=== PATIENT | female | born 1985 | race Caucasian/White ===

== ENCOUNTER 2016-06-04 22:17 | Emergency (ER) | payer SELFPAY ==
[2016-06-04 22:25] VITALS: RESP 16; O2SAT 96
--- NOTE | 2016-06-04 22:34 | CPEKG ---
Heart Rate: 71 RR Interval: 845 P-R Interval: 128 QRSD Interval: 92 QT Interval: 372 QTC Interval: 405 P Stacy: 32 QRS Stacy: 67 T Wave Stacy: -5 EKG Severity - NORMAL ECG - EKG Impression: SINUS RHYTHM Electronically Signed By: Ras Elmore 06-Jun-2016 13:17:52
[2016-06-04] MEDS ORDERED: NS 1,000 ML IV ONE (22:59)
[2016-06-04 23:06] LABS: % IMMATURE GRANULYOCYTES 0.1 % (0.0-1.1); ABSOLUTE IMMATURE GRANULOCYTES 0.01 10^3/uL (0.00-0.10); ADD DIFF? NO; ADD MORPH? NO; ADD SCAN? NO; ATYPICAL LYMPHOCYTE FLAG 30 (0-99); FRAGMENT RBC FLAG 0 (0-99); HEMOGLOBIN 14.1 g/dL (12.6-16.3); LEFT SHIFT FLG 0 (0-99); LIPEMIA HEMOLYSIS FLAG 90 (0-99); MEAN CELL HEMOGLOBIN 31.1 pg (27.9-34.1); MEAN CELL HEMOGLOBIN CONCENTR. 34.4 g/dL (32.4-36.7); MEAN CELL VOLUME 90.5 fL (81.5-99.8); MEAN PLATELET VOLUME 10.2 fL (8.7-11.7); PLATELET CLUMPS FLAG 10 (0-99); PLATELET COUNT 241 10^3/uL (150-400); RED BLOOD CELL COUNT 4.53 10^6/uL (4.18-5.33)
[2016-06-04 23:24] LABS: ANION GAP 12 mEq/L (8-16); CALCIUM 9.4 mg/dL (8.5-10.4); CARBON DIOXIDE 24 mEq/l (22-31); CHLORIDE 103 mEq/L (97-110); CREATININE 0.7 mg/dL (0.6-1.0); GLOMERULAR FILTRATION RATE > 60; GLUCOSE 87 mg/dL (70-100); POTASSIUM 3.9 mEq/L (3.5-5.2); SODIUM 139 mEq/L (134-144)
--- NOTE | 2016-06-05 00:43 | EDPHY ---
H & P Stated Complaint: dizziness, intermitant loss of vision - Personal History LMP (Females 10-55): 22-28 Days Ago Current Tetanus/Diphtheria Vaccine: Yes Current Tetanus Diphtheria and Acellular Pertussis (TDAP): Yes - Medical/Surgical History Hx Asthma: No Hx Chronic Respiratory Disease: No Hx Diabetes: No Hx Cardiac Disease: No Hx Renal Disease: No Hx Cirrhosis: No Hx Alcoholism: No Hx HIV/AIDS: No Hx Splenectomy or Spleen Trauma: No Other PMH: tonsilectomy, - Social History Smoking Status: Never smoked HPI/ROS: Chief complaint: Dizziness History of present illness: This is a 31-year-old female who presents to the emergency department for evaluation of dizziness. Patient reports the onset of symptoms approximately 5 days ago. She states symptoms are intermittent in nature. She describes the dizziness as a lightheadedness. Worse when she stands up. When she does she occasionally feels like she is going to pass out. She also gets black spots in her vision when she stands up and gets dizzy. She has had a mild headache although she has had similar in the past. She denies other potential precipitating factors. She denies alleviating factors. She denies other associated signs or symptoms including no paresthesias, no weakness or paralysis, no bowel or bladder dysfunction, no fevers or cold-like symptoms, no trauma. Review of systems: A 10 point review of systems was obtained and other than described above was negative (Galileo Ornelas) - Physical Exam Exam: General Appearance: Alert, nontoxic. Eyes: Pupils equal and round no pallor or injection. ENT: Tympanic membranes, external auditory canals, external ears and surrounding soft tissue including over the mastoids are unremarkable. Nasopharynx is not injected. There is no rhinorrhea. Oropharynx is not injected. There is no edema. There is no exudate. There is no asymmetry. The uvula is midline. No elevation of the tongue. There is no hoarseness, no drooling, no trismus, no stridor. Respiratory: There are no retractions, lungs are clear to auscultation. Cardiovascular: Regular rate and rhythm. Gastrointestinal: Abdomen is soft and nontender, no masses, bowel sounds normal. Neurological: Alert and oriented x4. Cranial nerves 2-12 grossly intact. Strength and sensation intact and symmetrical. No pronator drift. No meningismus. Ambulating without difficulty. Skin: Warm and dry, no rashes. Musculoskeletal: Neck is supple nontender. Extremities are symmetrical, full range of motion. Psychiatric: Patient is oriented X 3, there is no agitation. (Galileo Ornelas) Constitutional: Initial Vital Signs Temperature (C) 36.7 C 06/04/16 22:22 Heart Rate 85 06/04/16 22:22 Respiratory Rate 16 06/04/16 22:22 Blood Pressure 173/97 H 06/04/16 22:22 O2 Sat (%) 96 06/04/16 22:22 O2 Delivery Mode Room Air Allergies/Adverse Reactions: No Known Allergies Allergy (Unverified 06/04/16 22:21) Home Medications: Medication Instructions Recorded NK [No Known Home Meds] 06/04/16 Medical Decision Making - Diagnostics Imaging: CT scan of the head without contrast is negative for acute findings (Galileo Ornelas) ED Course/Re-evaluation: Patient seen in conjunction with my secondary supervising physician Dr. Beronica Martinez. Patient presents to the emergency department for evaluation and treatment of dizziness with visual disturbances. On presentation she is nontoxic. She is afebrile and vital signs are stable. Physical exam is benign including a nonfocal neurologic exam. Blood studies, EKG and CT scan of the head are negative. At this time my suspicion for serious underlying pathology requiring further emergency department care or inpatient management is low. Patient will be discharged home. Home care is discussed. She is referred to a primary care doctor and neurologist for continued evaluation and care. Strict return precautions are given. Patient voiced understanding and agreement with plan. (Galileo Ornelas) Differential Diagnosis: Included but not limited to hypovolemic state, anemia, electrolyte disturbances , cardiac disturbances, infectious pathology, CVA (Galileo Ornelas) Other Provider: ED PA DICTATION I evaluated and participated in the management of the patient. I also evaluated the patient independently. My co-signature indicates that I have reviewed this chart and I agree with the findings and plan of care as documented. My personal H&P findings include: 31-year-old healthy female with new onset positional dizziness for the last several days. This is associated with a mild headache, similar to her previous headaches. She has a normal neurologic evaluation. Here, she had basic labs, was given IV fluids. After my evaluation I ordered a CT scan of her head to evaluate for any mass or bleed. This was negative. She will be discharged from the emergency room with follow-up with primary care. The cause of her dizziness could be related to hypovolemia or dehydration. She will monitor her symptoms and return if she is worse in any way. (Beronica Martinez) - Data Points Laboratory Results: Laboratory Results 06/04/16 22:50 06/04/16 22:50 06/04/16 22:50 WBC 7.68 10^3/uL (3.80-9.50) RBC 4.53 10^6/uL (4.18-5.33) Hgb 14.1 g/dL (12.6-16.3) Hct 41.0 % (38.0-47.0) MCV 90.5 fL (81.5-99.8) MCH 31.1 pg (27.9-34.1) MCHC 34.4 g/dL (32.4-36.7) RDW 12.0 % (11.5-15.2) Plt Count 241 10^3/uL (150-400) MPV 10.2 fL (8.7-11.7) Neut % (Auto) 53.9 % (39.3-74.2) Lymph % (Auto) 36.3 % (15.0-45.0) Cloud % (Auto) 7.6 % (4.5-13.0) Eos % (Auto) 1.7 % (0.6-7.6) Baso % (Auto) 0.4 % (0.3-1.7) Nucleat RBC Rel Count 0.0 % (0.0-0.2) Absolute Neuts (auto) 4.14 10^3/uL (1.70-6.50) Absolute Lymphs (auto) 2.79 10^3/uL (1.00-3.00) Absolute Monos (auto) 0.58 10^3/uL (0.30-0.80) Absolute Eos (auto) 0.13 10^3/uL (0.03-0.40) Absolute Basos (auto) 0.03 10^3/uL (0.02-0.10) Absolute Nucleated RBC 0.00 10^3/uL (0-0.01) Immature Gran % 0.1 % (0.0-1.1) Immature Gran # 0.01 10^3/uL (0.00-0.10) Sodium 139 mEq/L (134-144) Potassium 3.9 mEq/L (3.5-5.2) Chloride 103 mEq/L (97-110) Carbon Dioxide 24 mEq/l (22-31) Anion Gap 12 mEq/L (8-16) BUN 11 mg/dL (7-23) Creatinine 0.7 mg/dL (0.6-1.0) Estimated GFR > 60 Glucose 87 mg/dL (70-100) Calcium 9.4 mg/dL (8.5-10.4) Beta HCG, Qual NEGATIVE Medications Given: Discontinued Medications Sodium Chloride (Ns) 1,000 mls @ 0 mls/hr IV ONCE ONE PRN Reason: Wide Open Stop: 06/04/16 23:00 Last Admin: 06/04/16 22:35 Dose: 1,000 mls Departure - Departure Disposition: Home, Routine, Self-Care Clinical Impression: Dizziness Condition: Good Instructions: Dizziness (ED) Additional Instructions: Please follow-up with the primary care doctor and Neurology for continued evaluation and care If symptoms worsen or new symptoms develop return to the emergency department for recheck Referrals: NONE *PRIMARY CARE P,. [Primary Care Provider] - As per Instructions [facility] [Outside] - As per Instructions Damion Kaiser MD [Medical Doctor] - As per Instructions Jonas Ruiz MD [Medical Doctor] - As per Instructions
[2016-06-05 00:54] VITALS: BP 125/74; PULSE 54; TEMP 97.9
--- NOTE | 2016-06-05 06:38 | CT ---
Unenhanced CT Scan of the Brain Clinical History: 31-year-old female presenting to the ED complaining of posterior head pain for 4 days, a visual disturbance, dizziness, and no antecedent trauma. Technique: Standard unenhanced helical CT imaging was obtained from the skull base to the skull vertex, reformatted at 5.00 and 1.50 mm increments, and reviewed in bone, brain, and subdural windows. DFOV: 25.0 cm. Parasagittal and paracoronal reconstructed images are reviewed on the workstation. Dose reduction protocol was used. Comparison Study: None. Findings: The ventricles and basilar cisterns are normal in size, and symmetrical in configuration. There is no midline shift, or other evidence of mass effect. There is no acute or subacute abnormal intraaxial or extraaxial blood collection, or infarction. The brain stem and the cerebellum are normal. 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 The osseous internal auditory canals appear normal, and are symmetrical in size. The paranasal sinuses and the mastoids are patent. The craniocervical junction, sella turcica , pineal gland, and the orbits are normal. Impression: Normal unenhanced CT scan of the brain. I provided a preliminary interpretation to Dr. Beronica Martinez at 12:40 a.m. on Wednesday, June 05, 2016 regarding the above findings. My final interpretation is concordant with my initial impression. If there is further clinical concern regarding the patient's symptoms, MR imaging of the brain could be considered. POS99 MTDD
== END 2016-06-05 00:53 | disposition home or self-care (01) ==
DX: R42 Dizziness and giddiness (principal)